=== PATIENT | female | born 1965 | race Caucasian/White ===

== ENCOUNTER 2017-08-24 12:13 | Day surgery (SDC) | payer BC ==
[2017-08-24 12:36] VITALS: TEMP 98.3
[2017-08-24] MEDS ORDERED: SODIUM CHLORIDE 0.9% FLUSH 10 ML SOL IV ONE (12:46)
[2017-08-24] MEDS ORDERED: LIDOCAINE HCL 1% MPF 30 SOL ONE (12:54)
[2017-08-24] MEDS ORDERED: BUPIVACAINE HCL 0.25% MPF 10 ML SOL INFIL ONE (12:54)
[2017-08-24] MEDS: MIDAZOLAM 2 MG/2 ML SOL ONE ×2 (13:21→13:25)
[2017-08-24] MEDS: FENTANYL 100MCG/2ML SOL ONE ×2 (13:21→13:27)
[2017-08-24] MEDS: TRIAMCINOLONE ACETONIDE 40 MG/ML SUS ONE ×2 (13:30→13:36)
[2017-08-24 14:02] VITALS: BP 158/84; PULSE 68; RESP 16; O2SAT 97
== END 2017-08-24 14:20 | disposition home or self-care (01) ==
LOC: EDBD → SURG 12:13 → EDUNIT# 13:00 → SURG 14:20
PROVIDERS: ATTEND Nurse Anesthetist, Certified Registered
DX: M47.9 Spondylosis, unspecified (principal)
CPT/HCPCS: J2250; J3010; J2001; J3300

== ENCOUNTER 2017-10-05 10:26 | Day surgery (SDC) | payer BC ==
[2017-10-05] MEDS ORDERED: DIAZEPAM 5 MG TAB ONE (10:46)
[2017-10-05 10:52] VITALS: TEMP 96.6
[2017-10-05] MEDS ORDERED: BUPIVACAINE HCL 0.25% MPF 30 ML SOL INFIL ONE (11:44)
[2017-10-05 12:01] VITALS: RESP 18
[2017-10-05 12:35] VITALS: BP 152/80; PULSE 61; O2SAT 98
[2017-10-05] MEDS ORDERED: LIDOCAINE HCL 1% MPF 30 SOL ONE (13:25)
== END 2017-10-05 12:55 | disposition home or self-care (01) ==
LOC: SURG 10:26
PROVIDERS: ATTEND Nurse Anesthetist, Certified Registered
DX: M12.88 Other specific arthropathies, not elsewhere classified, other specified site (principal)
CPT/HCPCS: A9270-GY; J2001

== ENCOUNTER 2017-11-24 13:36 | Day surgery (SDC) | payer BC ==
[2017-11-24] MEDS ORDERED: DIAZEPAM 5 MG TAB ONE (13:44)
[2017-11-24] MEDS ORDERED: LIDOCAINE HCL 2% MPF 10 ML SOL ONE (14:22)
[2017-11-24] MEDS ORDERED: LIDOCAINE HCL 1% MPF 30 SOL ONE (14:31)
[2017-11-24 14:33] VITALS: RESP 16
[2017-11-24 15:03] VITALS: BP 136/80; PULSE 72; TEMP 97.4; O2SAT 99
== END 2017-11-24 15:17 | disposition home or self-care (01) ==
LOC: SURG 13:36
PROVIDERS: ATTEND Nurse Anesthetist, Certified Registered
DX: M12.88 Other specific arthropathies, not elsewhere classified, other specified site (principal)
CPT/HCPCS: A9270-GY; J2001

== ENCOUNTER 2018-03-30 08:55 | Day surgery (SDC) | payer BC ==
[2018-03-30] MEDS ORDERED: BUPIVACAINE HCL 0.25% MPF 30 ML SOL INFIL ONE (09:52)
[2018-03-30] MEDS ORDERED: LIDOCAINE HCL 1% MPF 30 SOL ONE (09:52)
[2018-03-30] MEDS ORDERED: LIDOCAINE HCL 2% MPF 10 ML SOL ONE (09:52)
[2018-03-30] MEDS: FENTANYL 100MCG/2ML SOL ONE ×2 (10:14→10:38)
[2018-03-30] MEDS: MIDAZOLAM 2 MG/2 ML SOL ONE ×2 (10:14→10:38)
[2018-03-30] MEDS: SODIUM CHLORIDE 0.9% FLUSH 10 ML SOL IV ONE ×2 (10:14→10:38)
[2018-03-30] MEDS: TRIAMCINOLONE ACETONIDE 40 MG/ML SUS ONE ×2 (10:35→10:54)
[2018-03-30 11:12] VITALS: PULSE 69; RESP 20; TEMP 97.4; O2SAT 93
[2018-03-30 11:28] VITALS: BP 168/103
== END 2018-03-30 11:37 | disposition home or self-care (01) ==
LOC: SURG 08:55
PROVIDERS: ATTEND Nurse Anesthetist, Certified Registered
DX: M12.88 Other specific arthropathies, not elsewhere classified, other specified site (principal)
CPT/HCPCS: J2250; J3010; J2001; J3300